=== PATIENT | female | born 1945 | race American Indian/Alaskan Native ===

== ENCOUNTER 2016-12-12 11:00 | Outpatient (CLI) | payer MEDICARE, OTHER ==
--- NOTE | 2016-12-12 13:17 | Mammography Report ---
BONE DENSITY STUDY: DEFINITIONS: BMD = Bone Mineral Density T-score = BMD related to mean peak bone mass of young adult (mean expressed in Standard Deviation) Z-score = Age matched BMD expressed in SD World Health Organization (WHO) Diagnostic Criteria Normal T-score > -1 SD Osteopenia T-score between -1 and -2.4 SD Osteoporosis T-score -2.5 SD or below FINDINGS: The weighted average BMD of lumbar spine L1-L4 is 1.193 with a T-score of 0.4. The weighted average BMD of the left hip is 0.892 with a T-score of -0.9. IMPRESSION: The patient's average T-score is diagnostic for normal bone density and low relative risk for fracture. NOTE: BMD is not the only risk factor for fracture; also consider factors such as the patient's age, risk of falling, previous osteoporotic fracture, family history of osteoporotic fractures, current smoker, and low body weight. Olivares's triangle is a region of interest in femur, predominantly of trabecular bone. It is not a true anatomic site, and [facility] does not recommend its use clinically.
--- NOTE | 2016-12-12 13:18 | Mammography Report ---
BILATERAL MAMMOGRAM: FINDINGS: The breasts are almost entirely fat (<25% glandular). No mass, distortion, suspicious calcification, or skin change is seen. CAD was utilized. IMPRESSION: Negative mammogram. There is no mammographic evidence of malignancy. RECOMMENDATION: Follow-up per ACS guidelines. BI-RADS CATEGORY: 1 = Negative ACR BI-RADS MAMMOGRAPHIC CODES: 0 = Needs additional imaging evaluation; 1 = Negative; 2 = Benign; 3 = Probably benign; 4 = Suspicious; 5 = Malignant; 6 = Known biopsy-proven malignancy COMMENT: 1. Dense breast tissue, i.e., adenosis, fibrocystic changes, etc., may obscure an underlying neoplasm. 2. Approximately 10% of cancers are not detected with mammography. 3. A negative mammography report should not delay biopsy if a clinically suspicious mass is present. COMMENT: Patient follow-up letters are generated in [employer].
== END 2016-12-12 11:01 | disposition home or self-care (01) ==
LOC: SPVWC 11:00
PROVIDERS: ATTEND Obstetrics & Gynecology
DX: Z12.31 Encounter for screening mammogram for malignant neoplasm of breast (principal); Z13.820 Encounter for screening for osteoporosis
CPT/HCPCS: 77080; G0202; 77067

== ENCOUNTER 2020-12-25 11:27 | Emergency (ER) | payer MEDICARE, OTHER ==
[2020-12-25 12:35] VITALS: BP 171/70
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
== END 2020-12-25 16:30 | disposition home or self-care (01) ==
LOC: ED 11:27
DX: G44.209 Tension-type headache, unspecified, not intractable (principal); M54.2 Cervicalgia; I10 Essential (primary) hypertension; I25.2 Old myocardial infarction; K21.9 Gastro-esophageal reflux disease without esophagitis; M19.91 Primary osteoarthritis, unspecified site; Z86.73 Personal history of transient ischemic attack (TIA), and cerebral infarction without residual deficits; F17.200 Nicotine dependence, unspecified, uncomplicated; Z98.890 Other specified postprocedural states; Z79.899 Other long term (current) drug therapy; Z88.8 Allergy status to other drugs, medicaments and biological substances
CPT/HCPCS: 72040

== ENCOUNTER 2021-10-30 06:29 | Day surgery (SDC) | payer MEDICARE, OTHER ==
[2021-10-30 07:19] LABS: Basophils # (Auto) 0.1 K/mm3 (0.0-0.1); Basophils % (Auto) 1.3 % (0.0-1.8); Eosinophils # (Auto) 0.2 K/mm3 (0.0-0.4); Eosinophils % (Auto) 2.6 % (0.0-4.3); Hematocrit 37.4 % (30.3-42.9); Hemoglobin 12.3 gm/dl (10.1-14.3); Lymphocytes # (Auto) 3.8 K/mm3 (1.2-5.4); Lymphocytes % (Auto) 39.9 % (13.4-35.0); Mean Corpuscular HGB Conc 33 % (30-34); Mean Corpuscular Volume 91 fl (79-97); Monocytes # (Auto) 0.9 K/mm3 (0.0-0.8); Monocytes % (Auto) 9.7 % (0.0-7.3); Platelet Count 225 K/mm3 (140-440); Red Cell Distribution Width 13.6 % (13.2-15.2)
[2021-10-30] MEDS: SODIUM CHLORIDE 0.9% 1000 ML 1,000 ML IV SCH ×2 (07:20→09:45)
[2021-10-30 07:30] LABS: INR 0.86 (0.87-1.13); Partial Thromboplastin Time 28.2 Sec. (24.2-36.6)
[2021-10-30] MEDS: fentaNYL 100 MCG/2 ML INJ ONE ×2 (09:44→10:12)
[2021-10-30] MEDS: MIDAZOLAM 2 MG/2 ML INJ ONE ×2 (09:44→10:11)
[2021-10-30] MEDS: NITROGLYCERIN SYRINGE 3 ML ONE ×2 (09:45→10:15)
[2021-10-30] MEDS: HEPARIN/NS 5000 UNIT/500ML 1,000 ML IR ONE ×2 (09:45→10:15)
[2021-10-30] MEDS: LIDOCAINE (1%) 10 MG/1 ML VIAL 20 ML MDV ONE ×2 (09:51→10:14)
[2021-10-30] MEDS: HEPARIN 10,000 UNITS/10 ML VIAL ONE ×2 (09:52→10:15)
[2021-10-30] MEDS: VERAPAMIL 5 MG/2 ML INJ ONE ×2 (09:52→10:15)
[2021-10-30] MEDS ORDERED: HYDROcodone/ACETAMINOPHEN 5-325 MG TAB PO PRN (10:30)
--- NOTE | 2021-10-30 10:33 | Short Stay Summary ---
Short Stay Documentation Date of service: 10/30/21 - History H&P: obtained from office - Allergies and Medications Current Medications: Allergies shellfish derived Allergy (Verified 10/30/21 07:36) Itching Home Medications Medication Instructions Recorded Confirmed Last Taken Type Atorvastatin Calcium [Lipitor] 20 mg PO DAILY 08/23/13 10/30/21 10/29/21 History Isosorbide Dinitrate 30 mg PO DAILY 08/23/13 10/30/21 10/29/21 History Levothyroxine [Synthroid] 75 mcg PO QAM 08/23/13 10/30/21 10/29/21 History Spironolactone 25 mg PO DAILY 08/23/13 10/30/21 10/29/21 History Ubidecarenone/Vit E Acetate [Co 100 mg PO DAILY 08/23/13 10/30/21 10/29/21 History Q-10 100 mg Softgel] carvediloL [Coreg] 25 mg PO BID 08/23/13 10/30/21 10/29/21 History HYDROcodone/APAP 5-325 [[place] 1 each PO Q6HR PRN #14 tablet 04/25/19 10/30/21 1 Week Ago Rx 5/325] ~10/23/21 ALPRAZolam [Xanax TAB] 0.25 mg PO DAILY 10/30/21 10/30/21 1 Week Ago History ~10/23/21 Clopidogrel [Plavix] 75 mg PO QDAY 10/30/21 10/30/21 10/29/21 History cilostazoL [Pletal] 100 mg PO BID 10/30/21 10/30/21 10/29/21 History Active Medications Sodium Chloride (Nacl 0.9% 1000 Ml) 1,000 mls @ 100 mls/hr IV DIRECT VERONICA Last Admin: 10/30/21 09:45 Dose: 100 mls/hr - Physical exam Integumentary: other (Right radial site clean dry and intact.) - Brief post op/procedure progress note Date of procedure: 10/30/21 Pre-op diagnosis: Peripheral Vascular Disease Post-op diagnosis: same Anesthesia: local Estimated blood loss: minimal - Hospital course Hospital course: Patient presented today for scheduled outpatient peripheral angiogram. Patient tolerated procedure well. No apparent distress. Plan was discussed with patient patient's family. patient will be discharged home to follow-up in 2 to 3 weeks at [facility] for planned JEEP DRIVER procedure. - Disposition Condition at discharge: Good Disposition: 01 HOME / SELF CARE / HOMELESS - Discharge Diagnoses (1) S/P PTCA (percutaneous transluminal coronary angioplasty) Status: Acute (2) CAD (coronary artery disease) Status: Chronic (3) HTN (hypertension) Status: Chronic (4) Hx of CABG Status: Chronic (5) Hyperlipidemia Status: Chronic (6) Peripheral arterial disease Status: Chronic (7) Tobacco use Status: Chronic Short Stay Discharge Plan Activity: advance as tolerated Diet: low fat, low cholesterol, low salt Wound: keep clean and dry, per your surgeon's advice Additional Instructions: Patient will be scheduled for follow-up JEEP DRIVER procedure at [facility] in [address] Zabala. Follow up with: DR FLORENCIA [Other] - 7 Days RAUL ZABALA MD [Staff Physician] - 11/19/21 6:30 am ([facility] JEEP DRIVER OP Procedure )
[2021-10-30] MEDS ORDERED: traMADol 50 MG TAB PO PRN (11:00)
--- NOTE | 2021-10-30 11:54 | Cardiac Catherization Report ---
DATE OF SERVICE: 10/30/2021 PERIPHERAL ANGIOGRAM CLINICAL INFORMATION: The patient 76-year-old female with ischemic cardiomyopathy, coronary artery disease, known peripheral vascular disease, smoker, hypertension, hyperlipidemia, renal insufficiency, has abnormal arterial ultrasound despite medical therapy, is here for peripheral angiogram. The patient was done with moderate sedation starts at 10:00, finished at 10:20, 20 minutes of moderate sedation done. DESCRIPTION OF PROCEDURE: Procedure was done via the right radial artery, sterile technique and local anesthesia, a 6-Tajik radial sheath inserted. Pigtail catheter was placed in distal abdominal aorta and runoff was done. Distal abdomen was patent with mild luminal irregularities, bifurcates into bilateral common iliacs. Left common iliac has a proximal 50% lesion. Bilateral internal iliacs patent, right internal iliac patent, left external iliac is occluded. Bilateral common femoral arteries are patent. Right SFA diffuse disease with focal areas of 80-90% noted in the proximal and distal portions. Popliteal was patent. Then, anterior tibial is 100% at the ostium. There is a peroneal artery that is patent and posterior tibial is occluded. Left SFA proximal stent has in-stent restenosis of LAD stent in focal areas, mid to distal diffuse 80%. Popliteal was patent with anterior tibial 100%. Peroneal is patent, posterior tibial has a short 100% occlusion, but the rest of vessel is patent. Pigtail catheter was removed over a guidewire. A 6-Tajik radial sheath was discontinued. Radial band applied. No hematoma, no bleeding. SUMMARY: 1. Distal abdominal patent, right common iliac patent, left common iliac 50%, bilateral internal iliacs patent, right external iliac patent, left external iliac occluded, bilateral common femoral arteries patent. Right SFA diffuse disease with focal areas of 80% from proximally and distally. Popliteal is patent with anterior tibial 100%, posterior tibial 100%, peroneal patent single vessel runoff. 2. Left SFA proximal stent has focal areas of in-stent restenosis. Mid to distal SFA has 80%, popliteal patent anterior tibial 100% peroneal patent, which showed occlusion of the posterior tibial. 3. 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 Discussed this with the patient and the patient's family in detail. TID: [id number] RECEIPT: [id number] AKI/CAROLINE
[2021-10-30 13:10] VITALS: BP 124/62
== END 2021-10-30 13:51 | disposition home or self-care (01) ==
LOC: CATHLABREC 06:29
PROVIDERS: ATTEND Internal Medicine
DX: I70.212 Atherosclerosis of native arteries of extremities with intermittent claudication, left leg (principal); I25.5 Ischemic cardiomyopathy; I65.22 Occlusion and stenosis of left carotid artery; I25.10 Atherosclerotic heart disease of native coronary artery without angina pectoris; E78.2 Mixed hyperlipidemia; M48.02 Spinal stenosis, cervical region; I12.9 Hypertensive chronic kidney disease with stage 1 through stage 4 chronic kidney disease, or unspecified chronic kidney disease; N18.2 Chronic kidney disease, stage 2 (mild); T82.856A Stenosis of peripheral vascular stent, initial encounter; F17.210 Nicotine dependence, cigarettes, uncomplicated; K21.9 Gastro-esophageal reflux disease without esophagitis; M19.90 Unspecified osteoarthritis, unspecified site; F41.9 Anxiety disorder, unspecified; Z98.890 Other specified postprocedural states; Z82.5 Family history of asthma and other chronic lower respiratory diseases; Z91.013 Allergy to seafood; Z79.899 Other long term (current) drug therapy; Z95.1 Presence of aortocoronary bypass graft; Z98.61 Coronary angioplasty status; Z90.710 Acquired absence of both cervix and uterus; Z86.73 Personal history of transient ischemic attack (TIA), and cerebral infarction without residual deficits; Y83.8 Other surgical procedures as the cause of abnormal reaction of the patient, or of later complication, without mention of misadventure at the time of the procedure; Y92.89 Other specified places as the place of occurrence of the external cause
CPT/HCPCS: 36200; 36415; 75716; 80048; 85025; 85610; 85730; 99156; C1894; J1644; J1815; J2250; J3010; J3490; J7030; Q0162; Q9967